=== PATIENT | male | born 1945 | race Caucasian/White ===

== ENCOUNTER 2018-02-27 15:10 | Outpatient (CLI) | payer OTHER | END 2018-02-27 15:31 | disposition home or self-care (01) | LOC: SONOGRAMA 15:10 | DX: N28.1 Cyst of kidney, acquired (principal) ==

== ENCOUNTER 2018-03-16 13:57 | Outpatient (CLI) | payer OTHER | END 2018-03-16 14:01 | disposition home or self-care (01) | LOC: SONOGRAMA 13:57 | DX: E04.1 Nontoxic single thyroid nodule (principal) ==

== ENCOUNTER 2018-03-31 23:19 | Emergency (ER) | payer OTHER ==
[~2018-03-31] VITALS: Ht 182.9 cm; Wt 99.8 kg
[2018-03-31] MEDS ORDERED: SYNTHROID137 MCG PO (23:31)
[2018-03-31] MEDS ORDERED: RANITIDINE HCL150 M1 PO (23:34)
[2018-03-31] MEDS ORDERED: COMBIGAN EYE DRO5 ML OP (23:34)
== END 2018-04-01 05:14 | disposition home or self-care (01) ==
LOC: ER 23:19
DX: R07.89 Other chest pain (principal)

== ENCOUNTER 2020-06-25 10:18 | Outpatient (CLI) | payer OTHER ==
[~2020-06-25 10:18] MED LIST: COMBIGAN EYE DRO5 ML OP; RANITIDINE HCL150 M1 PO; SYNTHROID137 MCG PO
== END 2020-06-25 10:26 | disposition home or self-care (01) ==
LOC: NUCLEAR 10:18
PROVIDERS: ATTEND Internal Medicine Hematology & Oncology
DX: I65.23 Occlusion and stenosis of bilateral carotid arteries (principal)

== ENCOUNTER 2020-07-21 09:34 | Outpatient (CLI) | payer OTHER | END 2020-07-21 09:36 | disposition home or self-care (01) | LOC: RX STUDY 09:34 | PROVIDERS: ATTEND Otolaryngology Plastic Surgery within the Head & Neck | DX: R13.19 Other dysphagia (principal) ==

== ENCOUNTER → 2021-04-02 09:36 | Outpatient (CLI) | payer OTHER | END | disposition home or self-care (01) | LOC: LAB 09:36 | PROVIDERS: ATTEND Urology | DX: Z20.828 Contact with and (suspected) exposure to other viral communicable diseases (principal); Z11.59 Encounter for screening for other viral diseases; Z03.818 Encounter for observation for suspected exposure to other biological agents ruled out ==